=== PATIENT | female | born 1965 | race Caucasian/White ===

== ENCOUNTER 2020-07-17 17:55 | Emergency (ER) | payer BC, OTHER ==
[2020-07-17 18:25] VITALS: BP 150/87
[2020-07-17] MEDS ORDERED: BACITRACIN ZINC OINT 1 PACKET TOP STA (20:01)
[2020-07-17] MEDS ORDERED: IBUPROFEN 800 MG TABLET PO STA (20:01)
--- NOTE | 2020-07-17 20:53 | XRAY Report ---
PROCEDURE: Elbow 3 View LT INDICATIONS: fall, L elbow pain TECHNIQUE: 3 views of the elbow were acquired. COMPARISON: None FINDINGS: Bones: No fractures or dislocations. No suspicious bony lesions. Soft tissues: No elbow joint effusion. No suspicious soft tissue calcifications. IMPRESSION: No acute finding. Reviewed by: Lino Hendricks MD on 07/17/2020 8:51 PM PST Approved by: Lino Hendricks MD on 07/17/2020 8:51 PM [facility] Station ID: [id number]
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
== END 2020-07-17 21:07 | disposition home or self-care (01) ==
LOC: ED 17:55
DX: T22.222A Burn of second degree of left elbow, initial encounter (principal); X19.XXXA Contact with other heat and hot substances, initial encounter; S50.02XA Contusion of left elbow, initial encounter; W07.XXXA Fall from chair, initial encounter; Y92.009 Unspecified place in unspecified non-institutional (private) residence as the place of occurrence of the external cause; Z88.2 Allergy status to sulfonamides
CPT/HCPCS: 73080; 99282; 99283; A9270